=== PATIENT | female | born 1985 | race African-American/Black ===

== ENCOUNTER 2017-09-27 17:33 | Emergency (ER) | payer OTHER ==
--- NOTE | 2017-09-27 17:35 | ED Physician Documentation ---
General Adult - HISTORIAN Historian: patient - HPI Stated Complaint: cough Chief Complaint: Cough/ Upper Respiratory Onset: other (2 weeks ) Timing: still present Severity: moderate Further Comments: yes (she states over two weeks ago she had a cough and congestion and was treated with a zpack and tessalon pearls "which these meds dont work for me" She states she has no fever but she has had some episodes of sweating today. Denies any other complaints. She is refusing flu work up just wants a chest xray) Last known Well Code/Unknown Code: Unknown - ROS CONST: recent illness EYES/ENT: none CVS/RESP: none GI/: none MS/SKIN/LYMPH: none NEURO/PSYCH: headache. denies: dizziness - PAST HX Past History: other (she has had history of high blood pressure but only at "times" no meds ) Surgeries/Procedures: none Immunizations: referred to PCP Allergies/Adverse Reactions: Allergies Allergy/AdvReac Type Severity Reaction Status Date / Time No Known Allergies Allergy Verified 09/27/17 18:11 Home Medications: Ambulatory Orders Medication Instructions Recorded Albuterol Sulfate [Proair HFA] 2 inh IH Q4-6 PRN #1 [email or web address] 09/27/17 Guaifenesin/Dextromethorphan 120 ml PO DIRECTED #1 bot 09/27/17 [Tussin Dm Syrup] - SOCIAL HX Smoking History: non-smoker Alcohol Use: none Drug Use: none - FAMILY HX Family History: No - VITAL SIGNS Vital Signs: Vital Signs Temp Pulse Resp BP Pulse Ox 142/78 06/20/13 08:42 - REVIEWED ASSESSMENTS Nursing Assessment Reviewed: Yes Vitals Reviewed: Yes Progress - Progress Progress: Discussed findings and plan She and her mother are agreeable She would like a work note for two days B/p has normalized ED Results Lab/Radiology - Radiology Radiology Impressions: Chest, PA and lateral HISTORY Cough. FINDINGS No infiltrate, effusion or pneumothorax is present. Heart size, mediastinum and pulmonary vascularity are normal. IMPRESSION No active disease. Electronically signed on Sep 27, 2017 6:57:01 PM BIOINFORMATICS SCIENTIST by: Darryl Trevino General Adult Physical Exam - PHYSICAL EXAM GENERAL APPEARANCE: no distress EENT: BRANDIE NECK: normal inspection RESPIRATORY: no resp distress, chest non-tender, breath sounds normal CVS: reg rate & rhythm, heart sounds normal, equal pulses, no murmur ABDOMEN: soft, no organomegaly, normal bowel sounds SKIN: warm/dry, normal color EXTREMITIES: non-tender NEURO: oriented X3, CN's nml as tested, motor nml, sensation nml Discharge Clincal Impression: Cough Prescriptions: Albuterol Sulfate [Proair HFA] 2 inh IH Q4-6 PRN #1 hfa.aer.ad PRN Reason: Cough Guaifenesin/Dextromethorphan [Tussin Dm Syrup] 120 ml PO DIRECTED #1 bot Referrals: Primary Doctor,No [Primary Care Provider] - 2 Days Comments: follow up with PCP in 2 days Increase or change in symptoms return to ER OTC meds for fever Condition: Stable Disposition: 01 HOME, SELF-CARE Decision to Admit: NO Date of Decison to Admit: 09/27/17 Decision Time: 19:06
[2017-09-27 18:43] LABS: BASOPHILS % 1.4 (0.0-1.5); EOSINOPHILS % 3.5 % (0.0-6.8); MEAN CORPUSCULAR VOLUME 92.4 fl (80.0-100.0); MONOCYTES % 6.7 % (0.0-11.0); NEUTROPHILS # 5.1 # k/uL (1.4-7.7)
[2017-09-27 19:10] LABS: eGFR (African) > 60; eGFR (Non-African) > 60
--- NOTE | 2017-09-27 19:23 | Diagnostic Imaging Report ---
GAYLE COLLINS [facility] [place] [facility] [address] [facility] [place] [facility] [address], [place]. [address] Report Submission Date: Sep 27, 2017 6:57:01 PM AGENCY OWNER Patient Study Name: DHRUV WRIGHT Date: Sep 27, 2017 6:23:25 PM AGENCY OWNER Modality Type: CR Gender: F Description: CHEST : 87 Institution: [facility] [place] [facility] Physician: GAYLE COLLINS Chest, PA and lateral HISTORY Cough. FINDINGS No infiltrate, effusion or pneumothorax is present. Heart size, mediastinum and pulmonary vascularity are normal. IMPRESSION No active disease. Electronically signed on Sep 27, 2017 6:57:01 PM AGENCY OWNER by: Darryl JACOBS
[2017-09-27 19:33] VITALS: BP 139/80
== END 2017-09-27 19:25 | disposition home or self-care (01) ==
LOC: ED 17:33
DX: R05 Cough (principal)
CPT/HCPCS: 71020; 80053; 85025; 99283